=== PATIENT | male | born 1985 | race Caucasian/White ===

== ENCOUNTER 2018-04-30 12:56 | Emergency (ER) | payer SELFPAY ==
[2018-04-30] MEDS ORDERED: KETOROLAC 30 MG/ML INJ ONE (13:26)
--- NOTE | 2018-04-30 13:54 | EDPHYS ---
Physician Documentation [facility] Name: Aleida Schultz Age: 33 yrs Sex: Male : 1985 Arrival Date: 04/30/2018 Time: 12:59 Bed 13 Private MD: None, None ED Physician Lazaro Marroquin HPI: 04/30 13:24 This 33 yrs old Male presents to ER via Wheelchair with complaints of Back kb Pain, Leg Pain. 13:24 The patient presents with pain that is acute, and tenderness. The symptoms are located kb in the low back. Onset: The symptoms/episode began/occurred this morning, at 10:00. The pain radiates to the right leg. Associated signs and symptoms: The patient has no apparent associated signs or symptoms. The problem was sustained when lifting heavy object. Modifying factors: The patient symptoms are alleviated by nothing, the patient symptoms are aggravated by any movement. Severity of symptoms: At their worst the symptoms were moderate, in the emergency department the symptoms are unchanged. The patient has not experienced similar symptoms in the past. The patient has not recently seen a physician. Pt states he was lifting something heavy at work and felt like he pulled something in his lower back. Historical: - Allergies: 13:11 No Known Allergies; sv - Home Meds: 13:11 None [Active]; sv - PMHx: 13:11 None; sv - PSHx: 13:11 Urethra; sv - Immunization history:: Flu vaccine is not up to date. - Social history:: Smoking status: Patient uses tobacco products, denies chronic smoking, but will smoke occasionally, Patient/guardian denies using alcohol. - Ebola Screening: : No symptoms or risks identified at this time. ROS: 13:24 Constitutional: Negative for fever, chills, and weight loss, Cardiovascular: Negative kb for chest pain, palpitations, and edema, Respiratory: Negative for shortness of breath, cough, wheezing, and pleuritic chest pain, Abdomen/GI: Negative for abdominal pain, nausea, vomiting, diarrhea, and constipation, : Negative for injury, bleeding, discharge, and swelling, MS/Extremity: Negative for injury and deformity, Skin: Negative for injury, rash, and discoloration, Neuro: Negative for headache, weakness, numbness, tingling, and seizure. 13:24 Back: Positive for pain at rest, pain with movement, radiated pain. Exam: 13:24 Constitutional: This is a well developed, well nourished patient who is awake, alert, kb and in no acute distress. Head/Face: Normocephalic, atraumatic. Chest/axilla: Normal chest wall appearance and motion. Nontender with no deformity. No lesions are appreciated. Cardiovascular: Regular rate and rhythm with a normal S1 and S2. No gallops, murmurs, or rubs. Normal PMI, no JVD. No pulse deficits. Respiratory: Lungs have equal breath sounds bilaterally, clear to auscultation and percussion. No rales, rhonchi or wheezes noted. No increased work of breathing, no retractions or nasal flaring. Abdomen/GI: Soft, non-tender, with normal bowel sounds. No distension or tympany. No guarding or rebound. No evidence of tenderness throughout. Skin: Warm, dry with normal turgor. Normal color with no rashes, no lesions, and no evidence of cellulitis. MS/ Extremity: Pulses equal, no cyanosis. Neurovascular intact. Full, normal range of motion. Neuro: Awake and alert, GCS 15, oriented to person, place, time, and situation. Cranial nerves II-XII grossly intact. Motor strength 5/5 in all extremities. Sensory grossly intact. Cerebellar exam normal. Normal gait. 13:24 Back: pain, that is mild, that is moderate, of the right low back. Vital Signs: 13:11 BP 145 / 82; Pulse 75; Resp 20; Temp 99; Pulse Ox 98% ; Weight 79.38 kg; Height 5 ft. sv 11 in. (180.34 cm); Pain 9/10; 13:11 Body Mass Index 24.41 (79.38 kg, 180.34 cm) sv MDM: 13:09 Patient medically screened. kb 13:24 Data reviewed: vital signs, nurses notes. Data interpreted: Pulse oximetry: on room air kb is 98 %. Interpretation: normal. 13:27 Counseling: I had a detailed discussion with the patient and/or guardian regarding: the kb historical points, exam findings, and any diagnostic results supporting the discharge/admit diagnosis, the need for outpatient follow up, a family practitioner, to return to the emergency department if symptoms worsen or persist or if there are any questions or concerns that arise at home. Administered Medications: 13:17 Not Given (Other Intervention Used): TORadol 60 mg IVP once ss 13:25 Drug: TORadol 60 mg Route: IM; Site: right deltoid; sg Disposition: 18:53 Co-signature as Attending Physician, Lazaro Marroquin MD available for consultation at ps1 all times. . Disposition: 04/30/18 13:27 Discharged to Home. Impression: Low back pain. - Condition is Stable. - Discharge Instructions: Back Pain, Adult, [id number], Back Exercises, [id number]. - Prescriptions for Cyclobenzaprine 10 mg Oral Tablet - take 1 tablet by ORAL route every 8 hours As needed; 21 tablet. Diclofenac Sodium 75 mg Oral Tablet, Delayed Release (E.C.) - take 1 tablet by ORAL route 2 times per day As needed; 30 tablet. - Medication Reconciliation Form, Thank You Letter, Antibiotic Education, Prescription Opioid Use, Work release form form. - Follow up: Emergency Department; When: As needed; Reason: Worsening of condition. Follow up: Private Physician; When: 2 - 3 days; Reason: Recheck today's complaints, Continuance of care, Re-evaluation by your physician. Signatures: Autumn Foster, CALIN-C CALIN-Isabel Sanderson RN RN Jean Claude Morales RN RN sg Smirch, Shelby, RN RN ss Singer, Phillip, MD MD ps1 Corrections: (The following items were deleted from the chart) 13:39 13:27 04/30/2018 13:27 Discharged to Home. Impression: Low back pain. Condition is ss Stable. Forms are Medication Reconciliation Form, Thank You Letter, Antibiotic Education, Prescription Opioid Use. Follow up: Emergency Department; When: As needed; Reason: Worsening of condition. Follow up: Private Physician; When: 2 - 3 days; Reason: Recheck today's complaints, Continuance of care, Re-evaluation by your physician. kb
--- NOTE | 2018-04-30 13:54 | ER ---
Nurse's Notes [facility] Name: Aleida Schultz Age: 33 yrs Sex: Male : 1985 Arrival Date: 04/30/2018 Time: 12:59 Bed 13 Private MD: None, None Diagnosis: Low back pain Presentation: 04/30 13:05 Presenting complaint: Patient states: low back pain after picking up a 150 pound pipe sv at work. c/o BLE pain with L>R. Transition of care: patient was not received from another setting of care. Onset of symptoms was April 30, 2018 at 10:00. Care prior to arrival: None. 13:05 Method Of Arrival: Wheelchair sv 13:05 Acuity: CY 4 sv 13:10 Risk Assessment: Do you want to hurt yourself or someone else? Patient reports no sg desire to harm self or others. Initial Sepsis Screen: Does the patient meet any 2 criteria? No. Patient's initial sepsis screen is negative. Does the patient have a suspected source of infection? No. Patient's initial sepsis screen is negative. Triage Assessment: 13:11 General: Appears in no apparent distress. uncomfortable, slender, Behavior is calm, sv cooperative, appropriate for age. Pain: Complains of pain in back Pain currently is 9 out of 10 on a pain scale. Neuro: Level of Consciousness is awake, alert, obeys commands, Oriented to person, place, time, situation, Moves all extremities. Gait is steady. Respiratory: Respiratory effort is even, unlabored, Respiratory pattern is regular, symmetrical. Historical: - Allergies: 13:11 No Known Allergies; sv - Home Meds: 13:11 None [Active]; sv - PMHx: 13:11 None; sv - PSHx: 13:11 Urethra; sv - Immunization history:: Flu vaccine is not up to date. - Social history:: Smoking status: Patient uses tobacco products, denies chronic smoking, but will smoke occasionally, Patient/guardian denies using alcohol. - Ebola Screening: : No symptoms or risks identified at this time. Screenin:10 Abuse screen: Denies threats or abuse. Denies injuries from another. Nutritional sg screening: No deficits noted. Tuberculosis screening: No symptoms or risk factors identified. Never had TB. Fall Risk None identified. Assessment: 13:10 General: Appears in no apparent distress. comfortable, well groomed, well developed, sg well nourished, Behavior is calm, cooperative, appropriate for age. Neuro: No deficits noted. Level of Consciousness is awake, alert, obeys commands, Oriented to person, place, time, situation, Corn Husker are equal bilaterally Moves all extremities. Full function Gait is steady, Speech is normal, Facial symmetry appears normal. Cardiovascular: Patient's skin is warm and dry. Chest pain is denied. Respiratory: Airway is patent Respiratory effort is even, unlabored, Respiratory pattern is regular, symmetrical, Breath sounds are clear. GI: Abdomen is round non-distended, Bowel sounds present X 4 quads. : No signs and/or symptoms were reported regarding the genitourinary system. EENT: No signs and/or symptoms were reported regarding the EENT system. Derm: Skin is pink, warm \T\ dry. Musculoskeletal: Circulation, motion, and sensation intact. Range of motion: intact in all extremities, Swelling absent Reports pain in right low back and right leg. Vital Signs: 13:11 BP 145 / 82; Pulse 75; Resp 20; Temp 99; Pulse Ox 98% ; Weight 79.38 kg; Height 5 ft. sv 11 in. (180.34 cm); Pain 9/10; 13:11 Body Mass Index 24.41 (79.38 kg, 180.34 cm) sv ED Course: 12:59 Patient arrived in ED. sb2 13:00 None, None is Private Physician. sb2 13:07 Jean Claude Morales RN is Primary Nurse. sg 13:09 [facility] kb 13:09 Lazaro Marroquin MD is Attending Physician. kb 13:10 Triage completed. sv 13:10 Patient has correct armband on for positive identification. Bed in low position. Call sg light in reach. Pulse ox on. NIBP on. ice pack to leg Head of bed elevated. 13:10 No provider procedures requiring assistance completed. Patient did not have IV access sg during this emergency room visit. 13:12 Arm band placed on Patient placed in an exam room, on a stretcher, on pulse oximetry. sv Administered Medications: 13:17 Not Given (Other Intervention Used): TORadol 60 mg IVP once ss 13:25 Drug: TORadol 60 mg Route: IM; Site: right deltoid; sg Outcome: 13:27 Discharge ordered by . porfirio 13:37 Discharged to home ambulatory. sg 13:37 Condition: good 13:37 Discharge instructions given to patient, Instructed on discharge instructions, follow up and referral plans. medication usage, safety practices, Demonstrated understanding of instructions, follow-up care, medications, Prescriptions given X 1. 13:39 Patient left the ED. Signatures: Autumn Foster, CALIN-Dominga LAYTON-Isabel Sanderson RN RN Jean Claude Morales RN RN sg Smirch, Shelby, RN RN Rachel Page sb2
== END 2018-04-30 13:39 | disposition home or self-care (01) ==
LOC: ER 12:56
DX: M54.5 Low back pain (principal); X50.0XXA Overexertion from strenuous movement or load, initial encounter; Z72.0 Tobacco use
CPT/HCPCS: 96372; 99283